=== PATIENT | male | born 2000 | race Caucasian/White ===

== ENCOUNTER 2021-08-15 01:29 | Emergency (ER) | payer SELFPAY ==
[~2021-08-15] VITALS: Ht 180.3 cm; Wt 63.6 kg
[2021-08-15 03:57] VITALS: BP 101/84; PULSE 89; TEMP 97.9
== END 2021-08-15 03:57 | disposition home or self-care (01) ==
LOC: COL.ER 01:29
DX: S09.90XA Unspecified injury of head, initial encounter (principal); S40.811A Abrasion of right upper arm, initial encounter; V49.50XA Passenger injured in collision with unspecified motor vehicles in traffic accident, initial encounter; Y92.410 Unspecified street and highway as the place of occurrence of the external cause